=== PATIENT | male | born 1970 | race Caucasian/White ===

== ENCOUNTER 2020-09-27 21:52 | Emergency (ER) | payer BC ==
[2020-09-27 22:16] VITALS: BP 121/81; PULSE 75; RESP 16; TEMP 98.1
--- NOTE | 2020-09-27 22:21 | ED ---
General Adult HPI - General Chief complaint: Recheck/Abnormal Lab/Rx Stated complaint: COVID test Source: patient Mode of arrival: ambulatory Limitations: no limitations - History of Present Illness Initial comments: 49-year-old male patient presents to the emergency department requesting COVID- 19 testing in order to [place] the border into [place]. He denies any current symptoms or recent exposure. Declines further medical screening or exam. - Related Data Allergies Allergy/AdvReac Type Severity Reaction Status Date / Time No Known Allergies Allergy Verified 09/27/20 22:15 Review of Systems ROS Statement: Those systems with pertinent positive or pertinent negative responses have been documented in the HPI. ROS Other: All systems not noted in ROS Statement are negative. Past Medical History Past Medical History: Neurologic Disorder History of Any Multi-Drug Resistant Organisms: None Reported Past Surgical History: Orthopedic Surgery Additional Past Surgical History / Comment(s): sangeeta luo Past Psychological History: Anxiety Smoking Status: Never smoker Past Alcohol Use History: None Reported Past Drug Use History: None Reported General Exam Limitations: no limitations General appearance: alert, in no apparent distress Neurological exam: Present: alert, oriented X3 Skin exam: Present: warm, dry, normal color. Absent: rash Course Vital Signs 09/27/20 22:11 Temperature 98.1 F Pulse Rate 75 Respiratory 16 Rate Blood Pressure 121/81 Medical Decision Making - Medical Decision Making 49-year-old male patient presented for COVID-19 testing alert [place] the border into [place]. He tested negative and was provided with result. My attending is Dr. Hdz. - Lab Data Lab Results 09/27/20 Range/Units 22:17 Coronavirus (PCR) Not Detected (Not Detectd) Disposition Clinical Impression: Encounter for laboratory testing for COVID-19 virus Disposition: HOME SELF-CARE Condition: Good Instructions (If sedation given, give patient instructions): Coronavirus Disease 2019 (COVID-19) Is patient prescribed a controlled substance at d/c from ED?: No Referrals: None,Stated [Primary Care Provider] - 1-2 days
== END 2020-09-27 22:58 | disposition home or self-care (01) ==
LOC: EC 21:52
DX: Z20.822 Contact with and (suspected) exposure to COVID-19 (principal); F41.9 Anxiety disorder, unspecified
CPT/HCPCS: 87635; 99282